=== PATIENT | male | born 1960 | race Caucasian/White ===

== ENCOUNTER 2018-04-23 05:08 | Emergency (ER) | payer BC ==
[~2018-04-23] VITALS: Ht 177.8 cm; Wt 104.7 kg
[2018-04-23 05:53] LABS: HEMATOCRIT 42.5 % (38.0-50.0); HEMOGLOBIN 14.8 G/DL (12.5-16.6); MCH 33.3 PG (29.0-34.0); MCHC 34.8 G/DL (30.0-36.0); MCV 95.5 FL (86-99); PLATELET COUNT 297 K/uL (156-360); RBC DIS.WIDTH-CV 14.6 % (11.8-14.6); RBC DIS.WIDTH-SD 51.2 % (39-53); RED BLOOD COUNT 4.45 M/uL (4.00-5.50)
[2018-04-23 06:02] LABS: CHLORIDE 107 mEq/L (99-109); POTASSIUM 4.4 mEq/L (3.7-5.4); SODIUM 141 mEq/L (136-147)
[2018-04-23 06:04] LABS: GLUCOSE 124 mg/dL (70-99)
[2018-04-23 06:08] LABS: CREATININE 0.9 mg/dL (0.6-1.3); GFR ESTIMATE (CALCULATED) > 59 mL/min/ (58.99-99999)
[2018-04-23 06:09] LABS: UREA NITROGEN (BUN) 19 mg/dL (9-23)
[2018-04-23 06:21] LABS: APPEARANCE CLOUDY ((CLEAR)); BILIRUBIN NEGATIVE; BLOOD LARGE; COLOR YELLOW ((YELLOW)); GLUCOSE (STRIP) NEGATIVE; KETONES NEGATIVE; LEUKOCYTES NEGATIVE; NITRITE NEGATIVE; PROTEIN (STRIP) 30; SPECIFIC GRAVITY 1.031 (1.000-1.030); UROBILINOGEN 0.2 MG/DL (0.2-1.0)
[2018-04-23 06:26] LABS: BACTERIA RARE /HPF; CALCIUM OXALATE CRYSTALS 2+ /HPF; EPITHELIAL CELLS RARE /HPF; MUCUS TRACE /LPF; RED BLOOD CELLS 20-30 /HPF (0-5); UCUL ADDED? YES
[2018-04-23] MEDS ORDERED: FLOMAX0.4 MG PO (06:38)
[2018-04-23] MEDS ORDERED: ZOFRAN4 MG PO (06:38)
[2018-04-23] MEDS ORDERED: NORCO 5/3251 TABLET PO (06:38)
[2018-04-23 07:29] VITALS: BP 154/83
== END 2018-04-23 08:10 | disposition home or self-care (01) ==
LOC: EME 05:08
PROVIDERS: Emergency Medicine
DX: N20.1 Calculus of ureter (principal); R31.9 Hematuria, unspecified; Z87.442 Personal history of urinary calculi; F17.200 Nicotine dependence, unspecified, uncomplicated
CPT/HCPCS: 74176; 80048; 81003; 85027; 87077; 87086; 87186; 99281; 99285; J1885; J7030